=== PATIENT | female | born 2000 | race Two or more races ===

== ENCOUNTER 2021-03-09 12:02 | Emergency (ER) | payer OTHER ==
[~2021-03-09] VITALS: Ht 162.6 cm; Wt 88.0 kg
[2021-03-09] MEDS ORDERED: DULOXETINE HCL30 MG PO (12:15)
[2021-03-09] MEDS ORDERED: PRAZOSIN HCL1 MG PO (12:15)
== END 2021-03-09 14:49 | disposition home or self-care (01) ==
LOC: ER 12:02
DX: H18.821 Corneal disorder due to contact lens, right eye (principal)